=== PATIENT | female | born 1990 | race Caucasian/White ===

== ENCOUNTER 2018-09-05 06:21 | Emergency (ER) | payer OTHER, SELFPAY ==
[2018-09-05 06:23] VITALS: BP 135/84; PULSE 89; RESP 16; TEMP 36.7; O2SAT 100; BMI 22.8
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
--- NOTE | 2018-09-05 06:31 | RAD_ITS ---
STUDY: X-RAY CHEST REASON FOR EXAM: Female, 28 years old. Chest pain TECHNIQUE: 2 views COMPARISON: None. FINDINGS: Mild atelectatic changes in the right middle lobe. No acute pneumonia. The heart is normal.. Normal visualized thoracic spine. Normal visualized ribs, clavicles, and shoulders. There is no demonstrated abnormality of the visualized soft tissue structures of the upper abdomen. RAD/Chest PA and Lateral IMPRESSION: Mild atelectatic changes in the right middle lobe. No pneumonia. No pleural effusions. Electronically Signed: Calvin Solo MD at 7:32 EDT Tel , Service support ,
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
== END 2018-09-05 07:20 | disposition home or self-care (01) ==
LOC: ED 06:42
PROVIDERS: Emergency Provider Emergency Medicine
DX: S90.32XA Contusion of left foot, initial encounter (principal); S20.212A Contusion of left front wall of thorax, initial encounter; V43.52XA Car driver injured in collision with other type car in traffic accident, initial encounter; Y93.9 Activity, unspecified; Y92.410 Unspecified street and highway as the place of occurrence of the external cause; Y99.9 Unspecified external cause status
CPT/HCPCS: 71046; 73630; 99282

== ENCOUNTER 2020-06-27 10:16 | Emergency (ER) | payer OTHER, SELFPAY ==
[2020-06-27 10:17] VITALS: BP 124/81; PULSE 96; RESP 16; TEMP 35.6; O2SAT 100; BMI 26.2
--- NOTE | 2020-06-27 10:57 | ED.VISSUMM ---
- ER Visit Summary Date of Service: 06/27/20 Chief Complaint: Back pain History of Present Illness: The patient is a 29 F who presents with back pain that has been getting worse over the past month. Patient states pain is over the lower lumbar area. Patient states she has been seeing a chiropractor for this with minimal improvement. Patient states it helps for a few hours and then it starts to hurt again. Patient denies any trauma or injury. Patient denies any radiation of the pain down her lower extremities or into her abdomen. Patient denies any bowel or bladder changes. Patient denies any saddle anesthesia. Physical Examination: Vital signs are stable. Patient is afebrile. Patient is in no acute distress. Musculoskeletal exam reveals tenderness over the lower lumbar spine and paraspinal muscles. There is no bony crepitance or step-off. There is no edema or ecchymosis. Range of motion was slightly limited in all motion secondary to pain. Straight leg raises were negative. Deep tendon reflexes were 2+/4 bilaterally in the lower extremities. Strength is 5/5 bilateral in the lower extremities. There are no sensory deficits noted. Emergency Department Course and Treatment: Patient was advised that this is most likely muscular strain. Patient was given prescriptions for Naprosyn and Flexeril. Patient was instructed to use ice to the area. Patient was instructed to continue with her stretching. Patient was instructed to follow-up with her primary care physician in 5 to 7 days. Patient understood and was agreeable with the plan. All questions were answered. Disposition: Discharge home Impression: Low back pain This note was generated with [employer] dictation software. It may contain incorrect words, spelling, and punctuation that were not noted in review of the chart prior to signing ED Disposition - Plan for ED Patient: Disposition: Home or Assisted Living Diagnosis: Low back pain Instructions: ED Back Sprain/Strain Prescriptions: cycloBENZAPRine HCl [Flexeril] 10 mg PO QHS PRN PRN #20 tab PRN Reason: Muscle Spasm Prescription Printed Naproxen [Naprosyn] 500 mg PO BID PRN #20 tab Prescription Printed Referrals: Keke Barth MD [NON-STAFF] - 5-7 Days
== END 2020-06-27 11:05 | disposition home or self-care (01) ==
PROVIDERS: Emergency Provider Emergency Medicine
DX: M54.5 Low back pain (principal)
CPT/HCPCS: 99282

== ENCOUNTER 2024-01-06 10:49 | Emergency (ER) | payer OTHER, SELFPAY ==
[2024-01-06 10:49] VITALS: BP 134/75; PULSE 83; RESP 14; TEMP 36.6; O2SAT 99; BMI 27.1
--- NOTE | 2024-01-06 11:08 | EDS_ITS ---
HPI History of Present Illness Chief Complaint: Wound Narrative Narrative: 33-year-old female presenting for evaluation of a spot on her left inner thigh. She is concerned because she has a history of MRSA and she had infection previously started similarly. Patient denies any systemic signs or symptoms. Patient states last time she was on Bactrim a couple of times in the wound would heal up but then would come back. She was then put on doxycycline and the wound went away. [facility] Medical History COVID-19 Home Medications ?Medication ?Instructions ?Recorded ?Last Taken ?Type Control 1 tab PO DAILY 09/05/18 Unknown History cyclobenzaprine 10 mg tablet 10 mg PO QHS PRN PRN Muscle Spasm 06/27/20 Unknown Rx #20 tabs naproxen 500 mg tablet 500 mg PO BID PRN #20 tabs 06/27/20 Unknown Rx dexamethasone 4 mg tablet 4 mg PO DAILY #5 tabs 06/17/21 Unknown Rx (Decadron) doxycycline hyclate 100 mg capsule 100 mg PO BID #20 caps 01/06/24 Unknown Rx Allergy/AdvReac Type Severity Reaction Status Date / Time No Known Allergies Allergy Verified 01/06/24 10:50 Family History Other Cancer Diabetes Social History Smoking Status: Never smoker ROS ROS ED Constitutional Constitutional ED: Denies chills, fever(s) or sweats Eyes Eyes: Denies blurry vision or change in vision ENT ENT ED: Denies ear pain or sore throat Cardiovascular Cardiovascular: Denies chest pain, palpitations or racing heartbeat Respiratory/Chest Respiratory/Chest: Denies cough, dyspnea or sputum Gastrointestinal Gastrointestinal: Denies abdominal pain, constipation, diarrhea, nausea or vomiting Genitourinary Genitourinary ED: Denies dysuria, hematuria or urinary frequency Musculoskeletal Musculoskeletal: Denies arthralgias, myalgias or neck pain Integumentary Reports rash and other; Denies abscess or Abrasions Neurologic Neurologic: Denies headache(s), paresthesias or weakness Psychiatric Psychiatric: Denies anxiety, depression, suicidal ideation or suicidal thoughts Endocrine Endocrinology: Denies polydipsia or polyuria EXAM Physical Exam Const Vital Signs: 01/06/24 10:49 Temperature 98 F Temperature Source Temporal Pulse Rate 83 Respiratory Rate 14 Blood Pressure 134/75 H Blood Pressure Mean 94 Pulse Ox 99 Oxygen Delivery Method Room Air Positive well nourished Eyes PERRL Resp normal respiratory effort Cardio regular rate and regular rhythm Neuro oriented x3 and CN's II-XII intact bilaterally Sensorium / Orientation: alert Psych mental status grossly normal Skin Skin Narrative: Inflamed hair follicle left inner thigh. No fluctuance. No surrounding erythema or induration. Minimally tender to palpation. MDM MDM MDM Narrative Medical decision making narrative: Patient has an inflamed hair follicle on left inner thigh. It does not look grossly infected. Patient concerned that it might become infected. I recommended sitz bath's and hot compresses to the area she can also use bacitracin on the area. I wrote her for a [id number] prescription for doxycycline should she need it. Patient minimal to this plan. Discharged in stable condition. Impression: 1. Folliculitis Lab Data Attestation: I reviewed the patient's lab results. Discharge Plan Triage Chief Complaint: Wound ED Provider: Roderick Alfaro Dx/Rx/DC Orders Instructions: ED Folliculitis Prescriptions: New doxycycline hyclate 100 mg capsule 100 mg PO BID Qty: 20 0RF No Action dexamethasone [Decadron] 4 mg tablet 4 mg PO DAILY Qty: 5 0RF Control 1 tab PO DAILY cyclobenzaprine 10 MG tablet 10 mg PO QHS PRN PRN (Reason: Muscle Spasm) Qty: 20 0RF naproxen 500 MG tablet 500 mg PO BID PRN Qty: 20 0RF Primary Care Provider: Care Physician,No Primary Referrals: [facility] [Provider Group] - 3-5 Days Care Physician,No Primary [Primary Care Provider] - Print Language: Japanese Disposition Disposition: Home, Self Care
== END 2024-01-06 11:36 | disposition home or self-care (01) ==
LOC: ED 11:27
PROVIDERS: Emergency Provider Student in an Organized Health Care Education/Training Program; PCP Nurse Practitioner; Visit Provider Student in an Organized Health Care Education/Training Program
DX: L73.9 Follicular disorder, unspecified (principal); Z86.14 Personal history of Methicillin resistant Staphylococcus aureus infection
CPT/HCPCS: 99282